=== PATIENT | male | born 1930 | race Hispanic/Latino ===

== ENCOUNTER 2017-05-31 13:20 | Emergency (ER) | payer MEDICARE, OTHER ==
[2017-05-31 13:34] VITALS: RESP 16; TEMP 97.9
[2017-05-31] MEDS ORDERED: Lidocaine 1%/Epinephrine 1:100000 30 ml vial IJ ONE (13:50)
--- NOTE | 2017-05-31 13:52 | ED PDOC ---
Arrival/HPI - General Chief Complaint: Trauma Time Seen by Provider: 05/31/17 13:36 Historian: Patient - History of Present Illness Narrative History of Present Illness (Text): 05/31/17 13:40 Lexa Hightower is an 89 year old male, whose past medical history includes [place] and hypertension, who presents to the emergency department complaining of a laceration on his head s/p mechanical fall prior to arrival. Patient reports he slipped off chair injuring his head and causing laceration. No other complaints were made. Patient is currently on Coumadin. PMD: Dr. Lissett Gibbs Time/Duration: Prior to Arrival Symptom Onset: Sudden Symptom Course: Unchanged Activities at Onset: Light Context: Slipped Past Medical History - Provider Review Nursing Documentation Reviewed: Yes - Infectious Disease Hx of Infectious Diseases: None - Cardiac Hx [place]: Yes (Mar 2016) Hx Hypertension: Yes Other/Comment: cardiac stent - Neurological Hx Seizures: Yes (last seizure October 2016) - Integumentary Hx Melanoma: Yes (Back, neck, and face (removed surgically)) - Musculoskeletal/Rheumatological Hx Arthritis: Yes - Psychiatric Hx Substance Use: No - Surgical History Hx Cardiac Catheterization: Yes Family/Social History - Physician Review Nursing Documentation Reviewed: Yes Family/Social History: Unknown Family HX Smoking Status: Never Smoked Hx Alcohol Use: No Hx Substance Use: No Allergies/Home Meds Allergies/Adverse Reactions: Allergies Sulfa (Sulfonamide Antibiotics) Allergy (Verified 05/31/17 13:49) DIZZINESS Home Medications: Home Meds Medication Instructions Recorded Confirmed Carbamazepine 400 mg PO DAILY 01/11/14 05/31/17 Carvedilol [Coreg] 12.5 mg PO DAILY 01/11/14 05/31/17 Aspirin [Aspirin Chewable] 81 mg PO DAILY 05/31/17 05/31/17 Carbamazepine [Carbatrol] 200 mg PO DAILY 05/31/17 05/31/17 Enalapril Maleate [Vasotec] 5 mg PO DAILY 05/31/17 05/31/17 Metoprolol Succinate [Toprol XL] 25 mg PO DAILY 05/31/17 05/31/17 Metoprolol Succinate [Toprol XL] 50 mg PO DAILY 05/31/17 05/31/17 Warfarin [Coumadin] 5 mg PO DAILY 05/31/17 05/31/17 Review of Systems - Review of Systems Constitutional: absent: Fevers Eyes: absent: Vision Changes Respiratory: absent: SOB Cardiovascular: absent: Chest Pain Gastrointestinal: absent: Abdominal Pain Genitourinary Male: absent: Dysuria, Frequency Musculoskeletal: absent: Back Pain Skin: Laceration (on head) Neurological: absent: Headache, Dizziness Physical Exam Vital Signs Reviewed: Yes Vital Signs Temp Pulse Resp BP Pulse Ox 05/31/17 15:51 88 16 167/87 H 100 05/31/17 15:27 77 16 180/76 H 99 05/31/17 13:28 97.9 F 50 L 16 223/84 H 99 Temperature: Afebrile Blood Pressure: Hypertensive Pulse: Bradycardic Respiratory Rate: Normal Appearance: Positive for: Well-Appearing, Non-Toxic, Comfortable Pain Distress: None Mental Status: Positive for: Alert and Oriented X 3 - Systems Exam Head: Present: Atraumatic, Normocephalic, Laceration (2cm occipital region ) Pupils: Present: PERRL Extroacular Muscles: Present: EOMI Conjunctiva: Present: Normal Neck: Present: Normal Range of Motion Cardiovascular: Present: Regular Rate and Rhythm, Normal S1, S2. No: Murmurs Neurological: Present: GCS=15, CN II-XII Intact, Speech Normal Skin: Present: Warm, Dry, Normal Color. No: Rashes Psychiatric: Present: Alert, Oriented x 3, Normal Insight, Normal Concentration Medical Decision Making ED Course and Treatment: 05/31/17 18:05 pt s/p trauma, mechanical fall on warfarin. head ct neg. pt denies baron. advise stric treturn precauitons. pt agrees tor eturn with any worsening. - Lab Interpretations Lab Results: 05/31/17 14:23 05/31/17 14:23 Lab Results 05/31/17 14:23: Sodium 141, Potassium 4.3, Chloride 104, Carbon Dioxide 29, Anion Gap 12, BUN 25 H, Creatinine 1.4, Est GFR ( Amer) 58, Est GFR (Non- Af Amer) 48, Random Glucose 105, Calcium 9.1, Total Bilirubin 0.5, AST 25, ALT 29, Alkaline Phosphatase 86, Total Protein 7.9, Albumin 4.3, Globulin 3.6, Albumin/Globulin Ratio 1.2 05/31/17 14:23: PT 29.5 H, INR 2.65 H, APTT 42.4 H 05/31/17 14:23: WBC 6.8, RBC 4.33, Hgb 13.9 L, Hct 41.7 L, MCV 96.3, MCH 32.1, MCHC 33.3, RDW 14.1, Plt Count 155, MPV 10.7, Gran % 69.7 H, Lymph % (Auto) 20.1 L, [facility] % (Auto) 6.5 H, Eos % (Auto) 3.4, Baso % (Auto) 0.3, Gran # 4.70, Lymph # 1.4, [facility] # 0.4, Eos # 0.2, Baso # 0.02 I have reviewed the lab results: Yes - RAD Interpretation Radiology Orders: 05/31/17 13:50 HEAD W/O CONTRAST [CT] Stat Cigar Head Perforator: Radiologist - Medication Orders Current Medication Orders: Discontinued Medications Lidocaine/Epinephrine (Lidocaine 1%/Epinephrine 1:612019 30 Ml) 0 ml IJ ONCE ONE Stop: 05/31/17 13:51 - Procedure PROCEDURE NOTE (Text): 05/31/17 PROCEDURE: LACERATION REPAIR Performed by the emergency provider Dr. Cerda Location: occipital region of head Length: 2 cm Description: clean wound edges, no foreign bodies Distal CMS: Normal. No deficits. Neurovascularly intact. Anesthesia: Lidocaine 1% Preparation: The wound was cleaned with NS and [place]. The area was prepped and draped in the usual sterile fashion. Exploration: The wound was explored and no foreign bodies were found. Procedure: The wound was closed. There was appropriate approximation. In total, 4 kylah were used. Post-Procedure: Good closure and hemostasis. The patient tolerated the procedure well and there were no complications. CSM remains intact. Post procedure dressing applied. - Scribe Statement The provider has reviewed the documentation as recorded by the Liz Walter Provider Scribe Attestation: All medical record entries made by the Scribenrike were at my direction and personally dictated by me. I have reviewed the chart and agree that the record accurately reflects my personal performance of the history, physical exam, medical decision making, and the department course for this patient. I have also personally directed, reviewed, and agree with the discharge instructions and disposition. Disposition/Present on Arrival - Present on Arrival Any Indicators Present on Arrival: No History of DVT/PE: No History of Uncontrolled Diabetes: No Urinary Catheter: No History of Decub. Ulcer: No History Surgical Site Infection Following: None - Disposition Have Diagnosis and Disposition been Completed?: Yes Diagnosis: Head injury Disposition: HOME/ ROUTINE Disposition Time: 03:00 Condition: STABLE Discharge Instructions (ExitCare): Head Injury (ED), Staple Care (ED) Additional Instructions: please follow up with your doctor. return to emergency room with worsening symptoms or concerns. the kylah need to be removed in 7 days. Referrals: [facility] [Outside] - Follow up with primary [facility] [Outside] - Follow up with primary Lissett Gibbs MD [Primary Care Provider] - Follow up with primary Forms: [employer] (Finnish)
[2017-05-31 14:34] LABS: BASO # 0.02 K/mm3 (0.0-2.0); BASO % 0.3 % (0.0-3.0); EOS # 0.2 (0.0-0.7); EOS % 3.4 % (1.5-5.0); GRAN # 4.7 (1.4-6.5); GRAN % 69.7 % (50.0-68.0); HEMATOCRIT 41.7 % (42.0-52.0); LYMPH # 1.4 (1.2-3.4); LYMPH % 20.1 % (22.0-35.0); MEAN CELL VOLUME 96.3 fl (80.0-105.0); MEAN CORPUSCULAR HEMOGLOBIN 32.1 pg (25.0-35.0); MEAN CORPUSCULAR HGB CONC 33.3 g/dl (31.0-37.0); MEAN PLATELET VOLUME 10.7 fl (7.0-11.0); MONO # 0.4 (0.1-0.6); MONO % 6.5 % (1.0-6.0); RED CELL DISTRIBUTION WIDTH 14.1 % (11.5-14.5); WHITE BLOOD COUNT 6.8 10^3/ul (4.5-11.0)
[2017-05-31 14:41] LABS: ALB/GLOB RATIO 1.2 (1.1-1.8); BILIRUBIN,TOTAL 0.5 mg/dL (0.2-1.3); CALCIUM 9.1 mg/dL (8.4-10.5); POTASSIUM 4.3 mmol/L (3.6-5.0); TOTAL PROTEIN 7.9 g/dL (5.8-8.3)
[2017-05-31 14:49] LABS: INR 2.65 (0.93-1.08)
[2017-05-31 14:50] LABS: PARTIAL THROMBOPLASTIN TIME 42.4 Seconds (25.1-36.5)
--- NOTE | 2017-05-31 14:58 | CT ---
PROCEDURE: CT HEAD WITHOUT CONTRAST. HISTORY: fall on warfarin COMPARISON: None available. TECHNIQUE: Axial computed tomography images were obtained through the head/brain without intravenous contrast. Radiation dose: Total exam DLP = 678 mGy-cm. This CT exam was performed using one or more of the following dose reduction techniques: Automated exposure control, adjustment of the mA and/or kV according to patient size, and/or use of iterative reconstruction technique. FINDINGS: HEMORRHAGE: No intracranial hemorrhage. BRAIN: No mass effect or edema. No atrophy or chronic microvascular ischemic changes. VENTRICLES: Unremarkable. No hydrocephalus. CALVARIUM: Unremarkable. PARANASAL SINUSES: Unremarkable as visualized. No significant inflammatory changes. MASTOID AIR CELLS: Unremarkable as visualized. No inflammatory changes. OTHER FINDINGS: None. IMPRESSION: No acute findings
[2017-05-31 15:52] VITALS: BP 167/87; PULSE 88; O2SAT 100
== END 2017-05-31 15:51 | disposition home or self-care (01) ==
LOC: ED 13:20
DX: S09.90XA Unspecified injury of head, initial encounter (principal); W07.XXXA Fall from chair, initial encounter; I10 Essential (primary) hypertension; Z79.01 Long term (current) use of anticoagulants; Z88.2 Allergy status to sulfonamides; I25.2 Old myocardial infarction